=== PATIENT | female | born 1995 | race Caucasian/White ===

== ENCOUNTER 2017-11-04 03:20 | Emergency (ER) | payer BC ==
[2017-11-04 03:32] VITALS: RESP 16; O2SAT 96
[2017-11-04] MEDS ORDERED: NS 1,000 ML IV ONE (04:06)
[2017-11-04] MEDS ORDERED: IBUPROFEN 600 MG TAB PO ONE (04:07)
[2017-11-04] MEDS ORDERED: IOPAMIDOL (ISOVUE 370) 100 ML BTL IV ONE (04:11)
[2017-11-04 04:24] LABS: % IMMATURE GRANULYOCYTES 0.2 % (0.0-1.1); ABSOLUTE IMMATURE GRANULOCYTES 0.01 10^3/uL (0.00-0.10); ADD DIFF? NO; ADD MORPH? NO; ADD SCAN? NO; ATYPICAL LYMPHOCYTE FLAG 10 (0-99); FRAGMENT RBC FLAG 0 (0-99); HEMATOCRIT 40.9 % (38.0-47.0); HEMOGLOBIN 13.9 g/dL (12.6-16.3); LEFT SHIFT FLG 0 (0-99); LIPEMIA HEMOLYSIS FLAG 90 (0-99); MEAN CELL HEMOGLOBIN 31.2 pg (27.9-34.1); MEAN CELL VOLUME 91.7 fL (81.5-99.8); MEAN PLATELET VOLUME 9.3 fL (8.7-11.7); PLATELET CLUMPS FLAG 10 (0-99); PLATELET COUNT 239 10^3/uL (150-400); RED BLOOD CELL COUNT 4.46 10^6/uL (4.18-5.33); RED CELL DISTRIBUTION WIDTH 13.1 % (11.5-15.2)
[2017-11-04 04:41] LABS: ANION GAP 15 mEq/L (8-16); CALCIUM 9.3 mg/dL (8.5-10.4); CARBON DIOXIDE 20 mEq/l (22-31); CHLORIDE 107 mEq/L (97-110); CREATININE 0.9 mg/dL (0.6-1.0); GLOMERULAR FILTRATION RATE > 60; GLUCOSE 93 mg/dL (70-100); POTASSIUM 3.8 mEq/L (3.5-5.2); SODIUM 142 mEq/L (134-144)
--- NOTE | 2017-11-04 04:49 | EDPHY ---
H & P Time Seen by Provider: 11/04/17 03:53 HPI/ROS: HPI Headache. 21-year-old female by private vehicle with her boyfriend. This patient complains of an ongoing left-sided frontal headache for the last 10 months. Described as gradual in onset. She reports that 3 weeks ago she had chiropractic manipulation as well as acupuncture to treat her headache. She reports that she had neck manipulation done at that time. She reports that since that time she has had worsening pain to the left upper lateral posterior aspect of her neck going into the base of her skull. She describes the pain is radiating into the left frontal area of her skull. She describes feeling numbness in her face and her hands. She has also had some nausea associated with this. ROS: Constitutional: No fever, no chills. No weakness. Eyes: No discharge. No changes in vision. ENT: No sore throat. No nasal congestion or rhinorrhea. Respiratory: No cough. No shortness of breath. Cardiac: No chest pain, no palpitations. Gastrointestinal: No abdominal pain, no vomiting, no diarrhea. Genitourinary: No hematuria. No dysuria or increased frequency with urination. Musculoskeletal: No back pain. As above. No myalgias or arthralgias. Skin: No rashes. Neurological: As above. No focal weakness or altered sensation. Past medical history: As above. Social history: Nonsmoker. No alcohol. Here with boyfriend. Physical Exam: General Appearance: Alert, no distress. She appears comfortable. This patient is responding to questions appropriately and in full sentences. This patient appears well-hydrated and well-nourished. Eyes: Pupils equal and round no pallor or injection. No lid edema, erythema or injection. No photophobia. No nystagmus. ENT, Mouth: Mucous membranes are moist. The pharyngeal tissues are unremarkable. No edema or swelling. No asymmetry suggestive of abscess. No erythema or exudates. Respiratory: There are no retractions, lungs are clear to auscultation with good air movement bilaterally. Cardiovascular: Regular rate and rhythm. No murmur. Gastrointestinal: Abdomen is soft and nontender, no masses, bowel sounds normal. No focal tenderness at McBurney's point. No Ayala sign. Neurological: Motor sensory function is grossly intact. Cranial nerves are normal. Gait is normal. Skin: Warm and dry, no rashes. Musculoskeletal: Neck is supple with mild tenderness on palpation at the left base/occipital region of the skull. No soft tissue edema, erythema, warmth. No bony step-off or crepitus noted on palpation of this area. She does not have pain with flexion of her head. Extremities are symmetrical. All joints range without pain or impingement. Psychiatric: No agitation. No depression. Database: EKG: Imaging: CT angiogram of head and neck: Negative for dissection process or other pathology. Results were discussed with staff radiologist Dr. Aristeo Arauz. Procedures: Emergency department course: Vital signs reviewed and are normal. I discussed my concern regarding the possibility of a vertebral artery dissection as a source of her headache given her history of chiropractic manipulation. She consents to CT angiogram of the head and the neck. She is declining any medication stronger than ibuprofen at this time for her headache. 4:50 a.m., patient sent for CT imaging as above. Repeat neurologic Assessment is nonfocal. 5:30 a.m., patient re-evaluated. She looks well. She appears comfortable. Repeat neurologic Assessment is nonfocal. Results of her CT scans were discussed with her. She feels comfortable going home at this time and I feel she is safe for discharge. Follow-up with Neurology and return to emergency department precautions reviewed with her. All of her questions were answered. She was discharged in good condition with her boyfriend. Differential Diagnosis: The differential diagnosis on this patient includes but is not limited to atypical migraine syndrome. Meningitis, encephalitis, carotid artery dissection , vertebral artery dissection, subarachnoid hemorrhage, temporal arteritis, venous sinus thrombosis unlikely. This represents a partial list of diagnoses considered. These considerations are based on history, physical exam, past history, reassessment and diagnostic testing. Smoking Status: Never smoked Constitutional: Initial Vital Signs Temperature (C) 36.4 C 11/04/17 03:26 Heart Rate 84 11/04/17 03:26 Respiratory Rate 16 11/04/17 03:26 Blood Pressure 145/87 H 11/04/17 03:26 O2 Sat (%) 96 11/04/17 03:26 O2 Delivery Mode Room Air Allergies/Adverse Reactions: No Known Allergies Allergy (Unverified 11/04/17 03:26) Home Medications: Medication Instructions Recorded Control 11/04/17 Medical Decision Making - Data Points Laboratory Results: Laboratory Results 11/04/17 04:10 11/04/17 04:10 11/04/17 11/04/17 11/04/17 04:10 04:10 04:10 WBC 5.30 10^3/uL 10^3/uL (3.80-9.50) RBC 4.46 10^6/uL 10^6/uL (4.18-5.33) Hgb 13.9 g/dL g/dL (12.6-16.3) Hct 40.9 % % (38.0-47.0) MCV 91.7 fL fL (81.5-99.8) MCH 31.2 pg pg (27.9-34.1) MCHC 34.0 g/dL g/dL (32.4-36.7) RDW 13.1 % % (11.5-15.2) Plt Count 239 10^3/uL 10^3/uL (150-400) MPV 9.3 fL fL (8.7-11.7) Neut % (Auto) 35.2 % L % (39.3-74.2) Lymph % (Auto) 53.4 % H % (15.0-45.0) [place] % (Auto) 9.1 % % (4.5-13.0) Eos % (Auto) 1.7 % % (0.6-7.6) Baso % (Auto) 0.4 % % (0.3-1.7) Nucleat RBC Rel Count 0.0 % % (0.0-0.2) Absolute Neuts (auto) 1.87 10^3/uL 10^3/uL (1.70-6.50) Absolute Lymphs (auto) 2.83 10^3/uL 10^3/uL (1.00-3.00) Absolute Monos (auto) 0.48 10^3/uL 10^3/uL (0.30-0.80) Absolute Eos (auto) 0.09 10^3/uL 10^3/uL (0.03-0.40) Absolute Basos (auto) 0.02 10^3/uL 10^3/uL (0.02-0.10) Absolute Nucleated RBC 0.00 10^3/uL 10^3/uL (0-0.01) Immature Gran % 0.2 % % (0.0-1.1) Immature Gran # 0.01 10^3/uL 10^3/uL (0.00-0.10) Sodium 142 mEq/L mEq/L (134-144) Potassium 3.8 mEq/L mEq/L (3.5-5.2) Chloride 107 mEq/L mEq/L (97-110) Carbon Dioxide 20 mEq/l L mEq/l (22-31) Anion Gap 15 mEq/L mEq/L (8-16) BUN 11 mg/dL mg/dL (7-23) Creatinine 0.9 mg/dL mg/dL (0.6-1.0) Estimated GFR > 60 Glucose 93 mg/dL mg/dL (70-100) Calcium 9.3 mg/dL mg/dL (8.5-10.4) Beta HCG, Qual NEGATIVE Medications Given: Discontinued Medications Sodium Chloride (Ns) 1,000 mls @ 0 mls/hr IV ONCE ONE; Wide Open PRN Reason: Protocol Stop: 11/04/17 04:07 Last Admin: 11/04/17 04:16 Dose: 1,000 mls Ibuprofen (Motrin) 600 mg PO EDNOW ONE Stop: 11/04/17 04:08 Last Admin: 11/04/17 04:16 Dose: 600 mg Departure - Departure Disposition: Home, Routine, Self-Care Clinical Impression: Headache Condition: Good Instructions: General Headache (ED) Additional Instructions: Read and follow provided instructions. Follow-up with Neurology, Dr. Yair Welch or 1 of his partners this week for re-evaluation and further management of your headache. Return to the emergency department for worsening or changing headache, vomiting , fever, neck pain or other serious concerns. Referrals: Yair Welch MD [Medical Doctor] - As per Instructions
[2017-11-04 05:43] VITALS: BP 119/70; PULSE 72; TEMP 98.1
== END 2017-11-04 05:41 | disposition home or self-care (01) ==
DX: R51 Headache (principal); E86.9 Volume depletion, unspecified
CPT/HCPCS: Q9967